=== PATIENT | female | born 1955 | race Two or more races ===

== ENCOUNTER → 2022-07-29 | Emergency (ER) | payer OTHER ==
[~2022-07-29] VITALS: Ht 149.9 cm; Wt 68.0 kg
[~2022-07-29] MED LIST: CRESTOR20 MG PO; DICLOFENAC POTA50 MG PO; KETO10TA2 PO; LASIX40 MG PO; RAYOS5 MG PO; TAMS0.4C PO; VASOTEC20 MG PO; WIXELA 500-501 EACH IH
== END | disposition home or self-care (01) ==
LOC: ER 07:46
DX: M54.50 Low back pain, unspecified (principal); I10 Essential (primary) hypertension; M79.7 Fibromyalgia